=== PATIENT | female | born 1975 | race Caucasian/White ===

== ENCOUNTER 2017-07-10 18:20 | Inpatient (IN) | payer OTHER ==
[~2017-07-10] VITALS: Ht 167.6 cm; Wt 54.9 kg
--- NOTE | 2017-07-10 18:54 | EMERGENCY ROOM VISIT NOTE ---
History Report prepared by Mike: Álvaro Martel Under the Supervision of: Dr. Yesenia Sheikh M.D. First contact with patient: 18:43 Chief Complaint: MENTAL HEALTH EVALUATION Stated Complaint: DEPRESSION,ACUTE PTSD History of Present Illness The patient is a 42 year old female who presents to the Emergency Room with complaints of constant suicidal thoughts beginning 3 weeks ago. The patient states she lost her fiance to suicide around 3 weeks ago. She reports it has been very difficult, and she developed a suicidal plan. The patient notes three days ago she was going to commit suicide, but she did not. She states she did not follow through with her plan because she does not want her family to have to go through what she is feeling. The patient reports she has an 11 year old son, and he is doing well with the situation. She notes she came in today because she wants to be herself again. The patient states she smokes less than a pack of cigarettes a day, and she smokes marijuana three to four times a week. She reports she has a psychiatrist that has prescribed her Effexor twice a day. The patient notes she thinks it makes her feel worse. She states she also has Ambien to help her sleep, but she does not take it. The patient reports she last saw her psychiatrist two weeks ago. She denies a past psychiatric health history, having weapons in her house, homicidal ideations, hallucinations, and a past medical history. Source of History: patient Onset: 3 weeks ago Position: other (global) Quality: other (suicidal thoughts) Timing: constant Note: Denies: having weapons in her house, homicidal ideations, hallucinations Review of Systems See HPI for pertinent positives & negatives. A total of 10 systems reviewed and were otherwise negative. Past Medical & Surgical Medical Problems: (1) Generalized anxiety disorder (2) Major depressive disorder without psychotic features (3) No Known Active Medical Problems (4) PTSD (post-traumatic stress disorder) Family History Patient reports no known family medical history. Social History Smoking Status: Current Every Day Smoker (<1 pack a day) Drug Use: marijuana Marital Status: single Housing Status: lives with family Occupation Status: unemployed Current/Historical Medications Scheduled Venlafaxine Hcl (Effexor Extended Rel), 150 MG PO QAM Venlafaxine Hcl (Effexor Xr), 75 MG PO HS Scheduled PRN Clonazepam (Klonopin), 1 MG PO TID PRN for Anxiety Allergies Coded Allergies: No Known Allergies (Unverified , 07/10/17) Physical Exam Vital Signs Date Time Temp Pulse Resp B/P (MAP) Pulse Ox O2 Delivery O2 Flow Rate FiO2 07/10/17 20:30 95 18 119/77 100 Room Air 07/10/17 18:34 36.8 110 16 138/74 97 Room Air Physical Exam Vital signs reviewed. General: Well-appearing 42 year old female, in no significant distress. HEENT: No scleral icterus, PERRLA, neck supple. Atraumatic. Cardiovascular: Regular rate and rhythm, no extra sounds. Pulmonary: Clear to auscultation bilaterally, normal work of breathing. Abdomen: Soft, nontender, nondistended, positive bowel sounds. Musculoskeletal: Atraumatic, no peripheral edema. Neurologic: Patient awake alert and oriented x 3, full strength in all 4 extremities. Cranial nerves 2 through 12 grossly intact. Skin: Warm, dry, no rash Psychiatric: Positive SI. Negative HI. Medical Decision & Procedures Laboratory Results 07/10/17 19:15 Red Blood Count 4.54, Mean Corpuscular Volume 94.5, Mean Corpuscular Hemoglobin 32.8, Mean Corpuscular Hemoglobin Concent 34.7, Mean Platelet Volume 9.6, Neutrophils (%) (Auto) 64.8, Lymphocytes (%) (Auto) 25.6, Monocytes (%) (Auto) 8.1, Eosinophils (%) (Auto) 1.0, Basophils (%) (Auto) 0.2, Neutrophils # (Auto) 7.01, Lymphocytes # (Auto) 2.77, Monocytes # (Auto) 0.88, Eosinophils # (Auto) 0.11, Basophils # (Auto) 0.02 07/10/17 19:15 Test 07/10/17 19:02 07/10/17 19:15 07/10/17 22:36 Urine Color YELLOW Urine Appearance CLOUDY (CLEAR) Urine pH 6.5 (4.5-7.5) Urine Specific [place] 1.022 (1.000-1.030) Urine Protein NEG (NEG) Urine Glucose (UA) NEG (NEG) Urine Ketones TRACE (NEG) Urine Occult Blood NEG (NEG) Urine Nitrite NEG (NEG) Urine Bilirubin NEG (NEG) Urine Urobilinogen NEG (NEG) Urine Leukocyte Esterase TRACE (NEG) Urine WBC (Auto) 5-10 /hpf (0-5) Urine RBC (Auto) 0-4 /hpf (0-4) Urine Hyaline Casts (Auto) 1-5 /lpf (0-5) Urine Epithelial Cells (Auto) >30 /lpf (0-5) Urine Bacteria (Auto) 2+ (NEG) Urine Opiates Screen NEG (NEG) Urine Methadone, Qualitative NEG (NEG) Urine Barbiturates NEG (NEG) Urine Phencyclidine (PCP) Level NEG (NEG) Ur Amphetamine/Methamphetamine NEG (NEG) MDMA (Ecstasy) Screen NEG (NEG) Urine Benzodiazepines Screen POS (NEG) Urine Cocaine Metabolite POS (NEG) Urine Marijuana (THC) POS (NEG) White Blood Count 10.82 K/uL (4.8-10.8) Red Blood Count 4.54 M/uL (4.2-5.4) Hemoglobin 14.9 g/dL (12.0-16.0) Hematocrit 42.9 % (37-47) Mean Corpuscular Volume 94.5 fL (80-100) Mean Corpuscular Hemoglobin 32.8 pg (25-34) Mean Corpuscular Hemoglobin Concent 34.7 g/dl (32-36) Platelet Count 291 K/uL (130-400) Mean Platelet Volume 9.6 fL (7.4-10.4) Neutrophils (%) (Auto) 64.8 % Lymphocytes (%) (Auto) 25.6 % Monocytes (%) (Auto) 8.1 % Eosinophils (%) (Auto) 1.0 % Basophils (%) (Auto) 0.2 % Neutrophils # (Auto) 7.01 K/uL (1.4-6.5) Lymphocytes # (Auto) 2.77 K/uL (1.2-3.4) Monocytes # (Auto) 0.88 K/uL (0.11-0.59) Eosinophils # (Auto) 0.11 K/uL (0-0.5) Basophils # (Auto) 0.02 K/uL (0-0.2) RDW Standard Deviation 45.4 fL (36.4-46.3) RDW Coefficient of Variation 13.2 % (11.5-14.5) Immature Granulocyte % (Auto) 0.3 % Immature Granulocyte # (Auto) 0.03 K/uL (0.00-0.02) Est Creatinine Clear Calc Drug Dose 67.0 ml/min Estimated GFR () 85.5 Estimated GFR (Non- 73.8 BUN/Creatinine Ratio 8.6 (10-20) Calcium Level 8.9 mg/dl (8.5-10.1) Total Bilirubin 0.3 mg/dl (0.2-1) Direct Bilirubin < 0.1 mg/dl (0-0.2) Aspartate Amino Transf (AST/SGOT) 12 U/L (15-37) Alanine Aminotransferase (ALT/SGPT) 16 U/L (12-78) Alkaline Phosphatase 55 U/L (45-117) Total Protein 7.1 gm/dl (6.4-8.2) Albumin 3.9 gm/dl (3.4-5.0) Thyroid Stimulating Hormone (TSH) 1.950 uIu/ml (0.300-4.500) Salicylates Level 3.6 mg/dl (2.8-20) Acetaminophen Level < 2 ug/ml (10-30) Ethyl Alcohol mg/dL < 3.0 mg/dl (0-3) Urine Test NEG (NEG) Date/Time Source Procedure Growth Status 07/10/17 19:02 Urine , Clean Catch Urine Culture - Final Lactobacillus Species Complete Laboratory results per my review. Medications Administered Medications (Trade) Dose Ordered Sig/Tamiko Route Start Time Stop Time Status Last Admin Dose Admin Potassium Chloride (Klor-Con M10) 40 meq NOW STAT PO 07/10/17 20:53 07/10/17 20:54 DC 07/10/17 20:53 40 MEQ Nicotine (Nicoderm Cq 21MG Patch) 1 patch NOW STAT TD 07/10/17 22:15 07/10/17 22:16 DC 07/10/17 22:15 1 PATCH ED Course 1855: Past medical records reviewed. The patient was evaluated in room A06. A complete history and physical examination was performed. 2052: Ordered Potassium Chloride 40 meq PO 2102: Pt is medically cleared. 7: Pt would like a Nicotine patch. 5: Ordered Nicotine 1 patch TD 0102: Pt was accepted by [facility]. The patient's 201 warrant was signed. Medical Decision Differential diagnosis: Etiologies such as mood disorder, infection, hypoglycemia, electrolyte abnormalities, cardiac sources, intracerebral event, toxicologic, neurologic, as well as others were entertained. This pt was evaluated and appeared to be in no distress. Pt was medically cleared, noted to be + for THC, marijuana, and benzos. Potassium is mildly low , she was given 40 MEq po. Pt was evaluated by PATRICIA corea and referred to where she was accepted for voluntary admission. Impression Primary Impression: Suicidal ideation Scribe Attestation The scribe's documentation has been prepared under my direction and personally reviewed by me in its entirety. I confirm that the note above accurately reflects all work, treatment, procedures, and medical decision making performed by me. Departure Information Dispostion [facility] Acute Care Patient Instructions [facility]
[2017-07-10] MEDS ORDERED: VENL150C56 PO (19:18)
[2017-07-10] MEDS ORDERED: CLON1TAB3 PO (19:18)
[2017-07-10] MEDS ORDERED: VENL75CA PO (19:18)
[2017-07-10 19:25] LABS: BASO % 0.2 %; BASO ABS # 0.02 K/uL (0-0.2); EOS ABS # 0.11 K/uL (0-0.5); HEMATOCRIT 42.9 % (37-47); HEMOGLOBIN 14.9 g/dL (12.0-16.0); IG# 0.03 K/uL (0.00-0.02); LYMPH % 25.6 %; LYMPH ABS # 2.77 K/uL (1.2-3.4); MEAN CELL VOLUME 94.5 fL (80-100); MEAN CORPUSCULAR HEMOGLOBIN 32.8 pg (25-34); MEAN CORPUSCULAR HGB CONC 34.7 g/dl (32-36); MEAN PLATELET VOLUME 9.6 fL (7.4-10.4); MONO % 8.1 %; MONO ABS # 0.88 K/uL (0.11-0.59); NEUT % 64.8 %; NEUT ABS # 7.01 K/uL (1.4-6.5); PLATELET COUNT 291 K/uL (130-400); RED CELL DISTRIBUTION WIDTH CV 13.2 % (11.5-14.5); RED CELL DISTRIBUTION WIDTH SD 45.4 fL (36.4-46.3); WHITE BLOOD COUNT 10.82 K/uL (4.8-10.8)
[2017-07-10 19:51] LABS: ALBUMIN 3.9 gm/dl (3.4-5.0); ALT/SGPT 16 U/L (12-78); AST/SGOT 12 U/L (15-37); BLOOD UREA NITROGEN 8 mg/dl (7-18); CALCIUM 8.9 mg/dl (8.5-10.1); CARBON DIOXIDE 29 mmol/L (21-32); CREATININE 0.94 mg/dl (0.60-1.20); GLUCOSE 90 mg/dl (70-99); POTASSIUM 3.1 mmol/L (3.5-5.1); SODIUM 137 mmol/L (136-145)
[2017-07-10 20:09] LABS: ALKALINE PHOSPHATASE 55 U/L (45-117); TOTAL PROTEIN 7.1 gm/dl (6.4-8.2)
[2017-07-10] MEDS ORDERED: POTASSIUM CHLORIDE 10 MEQ TABCR PO STA (20:53)
[2017-07-10] MEDS ORDERED: NICOTINE 21 MG/24 HR TDSY TD STA (22:15)
[2017-07-11] MEDS ORDERED: NURSING VERBAL MED ORDER ONE (00:45)
[2017-07-11 00:53] VITALS: O2SAT 98
[2017-07-11 01:39] VITALS: BP 114/71; PULSE 89; TEMP 36.8; Ht 167.6 cm; Wt 54.9 kg
[2017-07-11] MEDS ORDERED: NICOTINE POLACRILEX 2 MG GUM MT PRN (02:00)
[2017-07-11] MEDS ORDERED: BISMUTH SUBSALICYLATE PER ML OMNICELL CHARGE PO PRN (02:00)
[2017-07-11] MEDS ORDERED: hydrOXYzine HCL 25 MG TAB PO PRN ×2 (02:00)
[2017-07-11] MEDS ORDERED: SODIUM CHLORIDE 0.65% NA SOLN 45 ML (OCEAN) PRN (02:00)
[2017-07-11] MEDS ORDERED: ALUMINUM/MAGNESIUM SUSP 30 ML UDC PO PRN (02:00)
[2017-07-11] MEDS ORDERED: MAGNESIUM HYDROXIDE SUSP 30 ML UDC PO PRN (02:00)
[2017-07-11 06:52] VITALS: BP_SYST 102; BP_SYST 103; BP_DIAS 66; BP_DIAS 69; PULSE 73; PULSE 82; TEMP 36.8
[2017-07-11] MEDS ORDERED: NICOTINE 21 MG/24 HR TDSY EXT SCH (09:00)
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
[2017-07-11] MEDS: NICOTINE 21 MG/24 HR TDSY EXT PRN (09:15)
[2017-07-11] MEDS ORDERED: QUETIAPINE FUMARATE 25 MG TAB PO PRN (10:45)
[2017-07-11] MEDS ORDERED: CLONAZEPAM 0.5 MG TAB PO PRN (10:45)
[2017-07-11] MEDS: VENLAFAXINE HCL XR 75 MG CAPXR PO SCH (11:35)
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
[2017-07-11] MEDS: CLONAZEPAM 0.5 MG TAB PO PRN (17:15)
[2017-07-11] MEDS: QUETIAPINE FUMARATE 25 MG TAB PO SCH (21:17)
[2017-07-12 07:02] VITALS: BP_SYST 100; BP_SYST 91; BP_DIAS 61; BP_DIAS 68; PULSE 75; PULSE 93; TEMP 36.8
[2017-07-12] MEDS: VENLAFAXINE HCL XR 75 MG CAPXR PO SCH (09:00)
[2017-07-12] MEDS: NICOTINE 21 MG/24 HR TDSY EXT PRN (09:04)
[2017-07-12] MEDS: ACETAMINOPHEN 325 MG TAB PO PRN ×2 (09:05→22:25)
--- NOTE | 2017-07-12 10:10 | Psychiatric Progress Notes ---
Progress Note Date of Service Jul 12, 2017. Interval History Jael Ford is a 42-year-old female admitted on Jul 11, 2017 at 00:43 who currently lives in [place], [place] with her 11 year old son. Jael Ford was admitted on a 201 voluntary commitment. Patient is admitted from home. The patient was brought to the ED by the self transport for SI. Information provided by the patient is considered to be reliable. Chief Complaint "I feel so much better already". Subjective Patient was seen & assessed interval progress reviewed with Nursing. Pt reports improvement in both mood and sleep since admission to the unit. Pt states she took Seroquel 12.5mg yesterday afternoon and was able to sleep for 1.5 hours. Pt also reported requesting Klonopin 0.5mg yesterday evening as she was overwhelmed with conversation at the dinner table. She has noticed a difference already in consolidating her Effexor to the morning and feels much more "upbeat, and ready to take on the day". Pt states she tolerated 50mg Seroquel at bedtime, but was having cramping and feels that might have impacted her sleep. She reports she has been attending all groups and "it feels good to talk and get things out". Pt is grateful she came in and is feeling as though the changes to medication have made a big difference. She currently denies SI/ HI, A/V hallucinations. Review of Systems Psych: denies symptoms other than stated above Constitutional: denied Cardiovascular: denied GI: denied Neurologic: denied Musculoskeletal: cramping due to menstrual cycle Remainder of 10 body systems also reviewed and denied other than noted above. Sleep Information Total Hours of Sleep: 6.75 Meal Information Percent of Breakfast Consumed: 100 Percent of Lunch Consumed: 100 Percent of Dinner Consumed: 90 Mental Status Exam During interview pt is: alert and oriented, cooperative Appearance: appropriately dressed, appropriately groomed, appeared stated age Eye contact is: good Motor behavior is: steady gait & station, no abnormal motor movements Speech: normal in rate, rhythm & volume Affect: mood congruent, euthymic Mood is: other ("much better") Thought process: goal directed, linear, logical, clear, coherent Thought content: reality based without delusions Suicidal thought are: denied, Plan: denied (previous plan to OD on Ambien), Intent: denied Homicidal thoughts are: denied Hallucinations: denies auditory, denies visual Cognition: memory grossly intact, attention grossly intact, language grossly intact Intelligence estimated to be: average Insight: fair Judgement: fair Impression Pt is showing improvement with medication changes made. Consolidation of Effexor to the morning has increased her energy which she feels has been helpful. Seroquel appears to be helping with sleep and anxiety, but concern for sedation. Will continue to monitor as patient reports she was rather tired before taking Seroquel 12.5mg yesterday afternoon. Klonopin 0.5mg taken one time yesterday due to feeling overwhelmed at the dinner table during conversation. Appears to be improving. Pt requires ongoing inpatient treatment due to rapid improvement in symptoms and necessity to determine continuation of symptom relief. Pt would be at high risk of suicide attempt if released from inpatient care too quickly. Plan (1) Major depressive disorder without psychotic features 07/11 - Effexor daily dosing consolidated to AM. Pt given Effexor 225mg this morning after interview. Added Seroquel 50mg qHS to target refractory depression and assist with poor sleep. PRN dosing of Seroquel 12.5 ordered for anxiety during the day as trying to discontinue use of Klonopin. Klonopin prn dose decreased to 0.5mg BID while tapering. Could increase prn dose of Seroquel based on extent of sedation and baseline anxiety during the day. Risks , benefits, side effects, and alternatives discussed and pt verbalized understanding and is agreement with the plan. - Labs for fasting blood glucose and fasting lipid panel to be drawn tomorrow AM. Will repeat electrolytes at that time due to being slightly hypokalemic upon presentation to the ED. Pt given potassium supplement while in the ED. - Every 15min safety checks - Encourage participation in group activities and therapy while on the unit - Identify supports to set up family meeting and safety plan - Coordination of care with outpatient providers - Set-up outpatient therapist 07/12 - Improvement in energy level and other depressive symptoms with consolidation of Effexor to AM dosing. Seroquel beneficial for sleep, no side effects reported. - Fasting glucose and lipid panel all wnl. Potassium increased to 4.0 and is now normal. - Continue to encourage participation in group activities - Aftercare with therapy and psychiatrist at [facility] - [place] (2) Suicidal ideation 07/11 - Every 15 min safety checks - Encourage participation in group activities and therapy (3) Generalized anxiety disorder 07/11 - Seroquel 12.5mg ordered prn for anxiety. Decreased Klonopin to 0.5mg BID prn while tapering. Plan to discontinue and encourage Seroquel for daytime anxiety. 07/12 - Pt received one dose of both Seroquel 12.5mg and Klonopin 0.5mg yesterday. Questionable oversedation with Seroquel, but patient also reports being generally tired yesterday. Continue to monitor during her stay. Klonopin was beneficial for anxiety at dinnertime. - Continue regimen as above with plan to d/c Klonopin by time of discharge. (4) PTSD (post-traumatic stress disorder) 07/11 - Unfavorable reaction to prazosin in the past. Hope to increase quality of sleep with Seroquel at bedtime as well as decrease anxiety during the day with prn Seroquel dosing. Continue to monitor for symptoms during hospitalization. Discharge / Aftercare Planning Primary Care Physician: Name: Meli Conde Date of Appointment: Aug 15, 2017 Time of Appointment: 3:25 pm Appointment Notes: [id number] [facility] [id number] Therapist: Name: MARK Pereira - Date of Appointment: Jul 30, 2017 Time of Appointment: 12:00 pm Appointment Notes: [address] [place] [id number] Evaluation Advisor: Name: Melinda Visit Code E&M Code: 87227 Inventory Assets Strengths: supportive friends, cares for son, educated Needs: would benefit from outpatient therapy, family support problems, financial difficulty due to not working Risk Factors Assessment : Yes /single/: Yes Health problems: No Mental Health Diagnoses: Yes Substance use disorders: Yes Previous attempt: No Family history of suicide: No Previous psychiatric stay: No Hopelessness: Yes Smoker: Yes Protective Factors Assessment Mandaeism beliefs: Yes : No Responsible for young children: Yes Employed: No Stable relationships: No Supportive family: No Data Vital Signs Last 24 Hrs: Date Time Temp Pulse Resp B/P (MAP) Pulse Ox O2 Delivery O2 Flow Rate FiO2 07/12/17 07:02 36.8 75 16 100/68 93 91/61 Meds Administered Last 24 Hrs: Meds Administered (Past 24Hrs) Medications (Trade) Dose Ordered Sig/Tamiko Route Start Time Stop Time Status Last Admin Dose Admin Potassium Chloride (Klor-Con M10) 40 meq NOW STAT PO 07/10/17 20:53 07/10/17 20:54 DC 07/10/17 20:53 40 MEQ Nicotine (Nicoderm Cq 21MG Patch) 1 patch NOW STAT TD 07/10/17 22:15 07/10/17 22:16 DC 07/10/17 22:15 1 PATCH Acetaminophen (Tylenol Tab) 650 mg Q4H PRN PO 07/11/17 02:00 08/10/17 01:59 07/12/17 09:05 650 MG Nicotine (Nicoderm Cq 21MG Patch) 1 patch QAM PRN EXT 07/11/17 02:00 08/10/17 01:59 07/12/17 09:04 1 PATCH Venlafaxine HCl (effeXOR EXTENDED REL CAP) 225 mg QAM PO 07/11/17 11:30 08/10/17 11:29 07/12/17 09:00 225 MG Quetiapine Fumarate (seroQUEL TAB) 50 mg HS PO 07/11/17 22:00 08/10/17 21:59 07/11/17 21:17 50 MG Quetiapine Fumarate (seroQUEL TAB) 12.5 mg BID PRN PO 07/11/17 10:45 08/10/17 10:44 07/11/17 11:35 12.5 MG Clonazepam (Klonopin Tab) 0.5 mg TID PRN PO 07/11/17 13:15 08/10/17 10:44 07/11/17 17:15 0.5 MG Lab Results Last 24 Hrs: Last 24 Hours Test 07/12/17 08:11 Sodium Level 139 mmol/L Potassium Level 4.0 mmol/L Chloride Level 108 mmol/L Carbon Dioxide Level 26 mmol/L Anion Gap 5.0 mmol/L Fasting Glucose 94 mg/dl Triglycerides Level 129 mg/dl Cholesterol Level 162 mg/dl HDL Cholesterol 45 mg/dl LDL Cholesterol, Calculated 91 mg/dl VLDL Cholesterol, Calculated 26 mg/dl Cholesterol/HDL Ratio 3.6 Problem Qualifiers (1) Major depressive disorder without psychotic features: Major depression recurrence: single episode Active/Remission status: currently active Major depression episode severity: severe Qualified Codes: F32.2 - Major depressive disorder, single episode, severe without psychotic features
[2017-07-12] MEDS: CLONAZEPAM 0.5 MG TAB PO PRN ×2 (10:25→18:36)
[2017-07-12] MEDS: QUETIAPINE FUMARATE 25 MG TAB PO SCH (22:24)
[2017-07-13 06:58] VITALS: BP_SYST 108; BP_SYST 92; BP_DIAS 60; BP_DIAS 71; PULSE 77; PULSE 91; TEMP 36.4
[2017-07-13] MEDS: NICOTINE 21 MG/24 HR TDSY EXT PRN (07:53)
[2017-07-13] MEDS: CLONAZEPAM 0.5 MG TAB PO PRN ×2 (07:53→16:16)
[2017-07-13] MEDS: VENLAFAXINE HCL XR 75 MG CAPXR PO SCH (07:53)
[2017-07-13] MEDS ORDERED: CLONAZEPAM 0.5 MG TAB PO PRN (18:00)
--- NOTE | 2017-07-13 18:06 | Psychiatric Progress Notes ---
Progress Note Date of Service Jul 13, 2017. Interval History Jael Ford is a 42-year-old female admitted on Jul 11, 2017 at 00:43 who currently lives in [place], [place] with her 11 year old son. Jael Ford was admitted on a 201 voluntary commitment for SI. Chief Complaint "this is the best thing that I've ever done for myself". Subjective Patient was seen & assessed interval progress reviewed with Nursing. receptive to safety planning meeting with friend. relates that her roommate has a background in mental health and would be part of that plan. She was appropriately tearful after a phone call with her son. She is sleeping better and denies SI. Anxiety is better controlled with taking Effexor in am. Review of Systems Psych: denies symptoms other than stated above Constitutional: denied Cardiovascular: denied GI: denied Neurologic: denied Remainder of 10 body systems also reviewed and denied other than noted above. Sleep Information Total Hours of Sleep: 6.75 Meal Information Percent of Breakfast Consumed: 98 Percent of Lunch Consumed: 100 Percent of Dinner Consumed: 90 Mental Status Exam During interview pt is: alert and oriented, cooperative Appearance: appropriately dressed, appropriately groomed, appeared stated age Eye contact is: good Motor behavior is: steady gait & station, no abnormal motor movements Speech: normal in rate, rhythm & volume Affect: mood congruent, euthymic Mood is: other ("much better") Thought process: goal directed, linear, logical, clear, coherent Thought content: reality based without delusions Suicidal thought are: denied Homicidal thoughts are: denied Hallucinations: denies auditory, denies visual Cognition: memory grossly intact, attention grossly intact, language grossly intact Intelligence estimated to be: average Insight: fair Judgement: fair Impression Pt is showing improvement with medication changes made. Consolidation of Effexor to the morning has increased her energy which she feels has been helpful. Plan (1) Major depressive disorder without psychotic features 07/11 - Effexor daily dosing consolidated to AM. Pt given Effexor 225mg this morning after interview. Added Seroquel 50mg qHS to target refractory depression and assist with poor sleep. PRN dosing of Seroquel 12.5 ordered for anxiety during the day as trying to discontinue use of Klonopin. Klonopin prn dose decreased to 0.5mg BID while tapering. Could increase prn dose of Seroquel based on extent of sedation and baseline anxiety during the day. Risks , benefits, side effects, and alternatives discussed and pt verbalized understanding and is agreement with the plan. - Labs for fasting blood glucose and fasting lipid panel to be drawn tomorrow AM. Will repeat electrolytes at that time due to being slightly hypokalemic upon presentation to the ED. Pt given potassium supplement while in the ED. - Every 15min safety checks - Encourage participation in group activities and therapy while on the unit - Identify supports to set up family meeting and safety plan - Coordination of care with outpatient providers - Set-up outpatient therapist 07/12 - Improvement in energy level and other depressive symptoms with consolidation of Effexor to AM dosing. Seroquel beneficial for sleep, no side effects reported. - Fasting glucose and lipid panel all wnl. Potassium increased to 4.0 and is now normal. - Continue to encourage participation in group activities - Aftercare with therapy and psychiatrist at [facility] - [place] (2) Suicidal ideation 07/11 - Every 15 min safety checks - Encourage participation in group activities and therapy (3) Generalized anxiety disorder 07/11 - Seroquel 12.5mg ordered prn for anxiety. Decreased Klonopin to 0.5mg BID prn while tapering. Plan to discontinue and encourage Seroquel for daytime anxiety. 07/12 - Pt received one dose of both Seroquel 12.5mg and Klonopin 0.5mg yesterday. Questionable oversedation with Seroquel, but patient also reports being generally tired yesterday. Continue to monitor during her stay. Klonopin was beneficial for anxiety at dinnertime. - Continue regimen as above with plan to d/c Klonopin by time of discharge 07/13 --continue to decrease frequency of prn Klonopin, patient aware that she will not be provided a prescription at time of discharge, still has 1 mg tabs at home and could be split to follow prn d/c instructions. Reviewed depressant effects on nervous system and she is agreeable that it should ultimately be discontinued. Seroquel too sedating for prn.. (4) PTSD (post-traumatic stress disorder) 07/11 - Unfavorable reaction to prazosin in the past. Hope to increase quality of sleep with Seroquel at bedtime as well as decrease anxiety during the day with prn Seroquel dosing. Continue to monitor for symptoms during hospitalization. Discharge / Aftercare Planning Primary Care Physician: Name: Meli Conde Date of Appointment: Aug 15, 2017 Time of Appointment: 3:25 pm Appointment Notes: [address] [facility] [place] [address] Therapist: Name: MARK Pereira - Date of Appointment: Jul 30, 2017 Time of Appointment: 12:00 pm Appointment Notes: [address] [facility] [place] [address] Net Programmer Analyst: Name: Melinda Visit Code E&M Code: 06048 Inventory Assets Strengths: supportive friends, cares for son, educated Needs: would benefit from outpatient therapy, family support problems, financial difficulty due to not working Risk Factors Assessment : Yes /single/: Yes Health problems: No Mental Health Diagnoses: Yes Substance use disorders: Yes Previous attempt: No Family history of suicide: No Previous psychiatric stay: No Hopelessness: Yes Smoker: Yes Protective Factors Assessment Jainism beliefs: Yes : No Responsible for young children: Yes Employed: No Stable relationships: No Supportive family: No Data Vital Signs Last 24 Hrs: Date Time Temp Pulse Resp B/P (MAP) Pulse Ox O2 Delivery O2 Flow Rate FiO2 07/13/17 06:58 36.4 77 16 108/71 91 92/60 Meds Administered Last 24 Hrs: Meds Administered (Past 24Hrs) Medications (Trade) Dose Ordered Sig/Tamiko Route Start Time Stop Time Status Last Admin Dose Admin Quetiapine Fumarate (seroQUEL TAB) 50 mg HS PO 07/11/17 22:00 08/10/17 21:59 07/12/17 22:24 50 MG Problem Qualifiers (1) Major depressive disorder without psychotic features: Major depression recurrence: single episode Active/Remission status: currently active Major depression episode severity: severe Qualified Codes: F32.2 - Major depressive disorder, single episode, severe without psychotic features
[2017-07-13] MEDS: QUETIAPINE FUMARATE 25 MG TAB PO SCH (21:45)
[2017-07-14 06:55] VITALS: BP_SYST 107; BP_SYST 112; BP_DIAS 69; BP_DIAS 72; PULSE 75; PULSE 96; TEMP 36.6
[2017-07-14] MEDS: NICOTINE 21 MG/24 HR TDSY EXT PRN (07:53)
[2017-07-14] MEDS: VENLAFAXINE HCL XR 75 MG CAPXR PO SCH (07:53)
[2017-07-14] MEDS ORDERED: NICO21DI4 EXT (09:45)
[2017-07-14] MEDS ORDERED: QUET1TAB32 PO (09:45)
[2017-07-14] MEDS ORDERED: CLON1TAB3 PO (09:45)
[2017-07-14] MEDS ORDERED: VENL75CA PO (09:45)
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
[2017-07-14] MEDS ORDERED: DESTROY THIS MEDICATION ONE (10:15)
== END 2017-07-14 11:55 | disposition home or self-care (01) | DRG 885 ==
LOC: C.EDB 18:24 → C.MHU 07-11 00:43
PROVIDERS: ADMIT Psychiatry & Neurology Psychiatry; ATTEND Psychiatry & Neurology Child & Adolescent Psychiatry
DX: F32.2 Major depressive disorder, single episode, severe without psychotic features (principal); R45.851 Suicidal ideations; F41.1 Generalized anxiety disorder; F43.10 Post-traumatic stress disorder, unspecified; F17.210 Nicotine dependence, cigarettes, uncomplicated; Z79.899 Other long term (current) drug therapy